=== PATIENT | female | born 2000 | race Caucasian/White ===

== ENCOUNTER 2025-08-30 03:45 | Inpatient (IN) ==
--- NOTE | 2025-08-30 03:55 | Emergency Department Note ---
Impression & Plan Drug overdose Admission ED Provider Note HPI: History obtained from patient. The patient is a 25-year-old female who presents the emergency department after an intentional drug overdose. Patient states that she had an argument with her boyfriend this evening, she states she therefore overdosed on Effexor tablets "because of the stress". Patient denies that this was a suicide attempt. Patient does also admit to drinking heavy amounts of alcohol earlier tonight. Patient states she took somewhere around to half a bottle of Effexor, she states shortly after that she threw up which she estimates was somewhere around 12 tablets. On arrival here to the ED the patient appears to be in no acute distress, she is alert and she is intoxicated but she is overall cooperative. ROS: - Per HPI Differential Diagnosis: Polysubstance abuse, anxiety/depression, suicide attempt, cardiac arrhythmia secondary to drug overdose, amongst other potential pathologies. *Outpatient medications and allergy history reviewed. PE: General: Alert, intoxicated, no acute distress HEENT: Normocephalic, trachea midline Eyes: Extraocular eye movement is intact, no scleral erythema Pulmonary: Clear to auscultation bilaterally, no wheezing Cardio: Regular rate and rhythm GI: Abdomen is soft to palpation : No suprapubic tenderness MSK: No evidence of trauma or malformation of the extremities, no edema Skin: No evidence of rash Neuro: Alert, no focal deficits Psychiatric: Intoxicated but overall cooperative INDEPENDENT INTERPRETATIONS: teletypesetter monitor: (As interpreted by myself): - An order was placed for continuous cardiac monitoring - Patient was noted to be in sinus rhythm with a rate of 90 EKG: (As interpreted by myself): Rate: 91 Rhythm: Normal sinus rhythm Intervals: Within normal limits ST changes: No ST elevation Time: 0349 Interventions provided in ED: - IV fluid bolus Medical Decision Making: IV was established and lab work obtained, patient was placed on rn cardiac rehab. EKG per my interpretation shows normal sinus rhythm without any evidence of arrhythmia or interval prolongation. Lab work shows no leukocytosis, hemoglobin is normal, platelet count is normal, CMP does not show any evidence of any critical findings. testing is negative, urinalysis does not show any blood or infection. Drug screen is positive for cocaine as well as marijuana, alcohol level is elevated at 211. Patient was assessed by case management, she initially is not in agreement for potential voluntary psychiatric admission therefore 302 petition was filed as the patient had an intentional drug overdose this evening. She does admit to the intent of the drug overdose and states she was having an argument with her boyfriend earlier this evening. I did also discussed the patient's presentation with poison control, they recommended 24-hour observation and otherwise supportive care. Given the patient will not be medically cleared for at least 24 hours, I discussed her presentation with the on-call hospitalist, Dr. Ledezma, and the patient was placed for admission in stable condition. Patient was in agreement for admission to the medicine service for further care. Consultants/Discussions held with other healthcare providers: - Hospitalist, Dr. Ledezma - Poison Control Center - Case management, Viktor Dukes Disposition discussion held by myself with: - Patient Diagnosis: 1. Intentional drug overdose, acute 2. Anxiety/depression, acute Disposition: Admission Sky Hernandez DO Emergency Medicine Past Med/Surg History Problem List (Updated 08/30/25 @ 05:14 by Sky Hernandez DO) Drug overdose (Acute) Social History Smoking Status: Current every day smoker Tobacco Type: E-cigarettes / Vaping Preferred Language: Spanish Feels Safe at Home: Yes Results & Data (ED) Vital Signs Vital Signs - 24 hr 08/30/25 04:10 08/30/25 04:13 08/30/25 04:30 Temperature 36.8 C Temperature Source Oral Pulse Rate 82 95 H Pulse Rate [Apical] 89 Pulse Rhythm Regular Pulse Rhythm [Apical] Regular Pulse Strength Normal Pulse Strength [Apical] Normal Respiratory Rate 18 18 Respiratory Effort / Characteristics Non-Labored Spontaneous Non-Labored Spontaneous Respiratory Depth Normal Normal Respiratory Pattern Regular Regular Blood Pressure 160/114 H Blood Pressure [Right Arm] 146/107 H Blood Pressure Mean 129 Blood Pressure Mean [Right Arm] 120 Blood Pressure Position Sitting Blood Pressure Position [Right Arm] Lying Pulse Oximetry 98 100 Oxygen Delivery Method Room Air Room Air Sepsis Recent Fever Within 48 Hours No Sepsis New/Unexplained Change in Mental Status N/A Sepsis Action Taken by Nursing No Action Required 08/30/25 05:01 Temperature Temperature Source Pulse Rate Pulse Rate [Apical] 85 Pulse Rhythm Pulse Rhythm [Apical] Regular Pulse Strength Pulse Strength [Apical] Normal Respiratory Rate 18 Respiratory Effort / Characteristics Non-Labored Spontaneous Respiratory Depth Normal Respiratory Pattern Regular Blood Pressure Blood Pressure [Right Arm] 117/82 Blood Pressure Mean Blood Pressure Mean [Right Arm] 93 Blood Pressure Position Blood Pressure Position [Right Arm] Pulse Oximetry 100 Oxygen Delivery Method Room Air Sepsis Recent Fever Within 48 Hours Sepsis New/Unexplained Change in Mental Status Sepsis Action Taken by Nursing Laboratory Data 08/30/25 03:54 08/30/25 03:54 Lab Results 08/30/25 08/30/25 Range/Units 03:54 04:03 WBC 6.88 (4.8-10.8) K/ul RBC 4.20 (4.20-5.40) M/uL Hgb 12.5 (12.0-16.0) g/dL Hct 37.4 (37.0-47.0) % MCV 89.0 (80.0-100.0) fL MCH 29.8 (25.0-34.0) pg MCHC 33.4 (32.0-36.0) g/dL RDW Std Deviation 40.9 (36.4-46.3) fL RDW Coeff of [place]vy 12.6 (11.5-14.5) % Plt Count 368 (130-400) K/uL MPV 8.8 L (9.4-12.4) fL Immature Gran % (Auto) 0.1 % Neut % (Auto) 61.9 % Lymph % (Auto) 31.7 % [place] % (Auto) 4.2 % Eos % (Auto) 1.7 % Baso % (Auto) 0.4 % Neut # (Auto) 4.25 (1.40-6.50) K/uL Lymph # (Auto) 2.18 (1.20-3.40) K/uL [place] # (Auto) 0.29 (0.11-0.59) K/uL Eos # (Auto) 0.12 (0.00-0.50) K/uL Baso # (Auto) 0.03 (0.00-0.20) K/uL Immature Gran # (Auto) 0.01 (0.01-0.20) K/uL Sodium 140 (136-145) mmol/L Potassium 3.6 (3.5-5.1) mmol/L Chloride 108 H (98-107) mmol/L Carbon Dioxide 25 (21-32) mmol/L Anion Gap 7 (3-11) BUN 9 (6-23) mg/dl Creatinine 0.85 (0.6-1.2) mg/dl Est Cr Clr Drug Dosing 97.8 ml/min eGFR 98.05 BUN/Creatinine Ratio 10.6 (10-20) Glucose 112 H (70-99(Fasting)) mg/dl Calcium 8.9 (8.6-10.3) mg/dl Total Bilirubin 0.2 (0.2-1.0) mg/dl AST 20 (13-39) U/L ALT 19 (7-52) U/L Alkaline Phosphatase 65 (34-104) U/L Total Creatine Kinase 115 (26-192) U/L Total Protein 7.8 (6.0-8.3) gm/dl Albumin 4.4 (3.4-5.0) gm/dl Globulin 3.4 (2.5-4.0) gm/dl Albumin/Globulin Ratio 1.3 (0.9-2) TSH 5.227 H (0.300-4.500) uIu/ml HCG, Qual Negative (Negative) Urine Color Yellow Urine Appearance Clear (Clear) Urine pH 6.0 (4.5-7.5) Ur Specific [place] 1.009 (1.000-1.030) Urine Protein Negative (Negative) Urine Glucose (UA) Negative (Negative) Urine Ketones Negative (Negative) Urine Blood Negative (Negative) Urine Nitrite Negative (Negative) Urine Bilirubin Negative (Negative) Urine Urobilinogen Negative (Negative) Ur Leukocyte Esterase Negative (Negative) Urine Comment Salicylates < 3.0 L (3.0-30) mg/dl Urine Opiates Screen Neg (Neg) Ur Methadone, Qual Neg (Neg) Urine Fentanyl Screen Neg (Neg) Acetaminophen < 3 L (10-30) ug/ml Urine Barbiturates Neg (Neg) Ur Phencyclidine (PCP) Neg (Neg) U Amphetamin/Meth Scrn Neg (Neg) MDMA (Ecstasy) Screen Neg (Neg) U Benzodiazepines Scrn Neg (Neg) Ur Cocaine Metabolite Pos H (Neg) U Marijuana (THC) Screen Pos H (Neg) Ethyl Alcohol mg/dL 211.2 H (<10.0) mg/dl Administered Medications Discontinued Medications Sodium Chloride (Nss) 1,000 mls @ 999 mls/hr IV .Q1H1M FRANCESCA Stop: 08/30/25 05:00 Last Admin: 08/30/25 03:56 Dose: 999 mls/hr Documented By: abl Discharge Plan Visit Data Chief Complaint: Overdose (Intentional) Stated Complaint: OVERDOSE - APPROX 30 150MG EFFEXOR ED Provider: Sky Hernandez Discharge Problem: Drug overdose Patient Disposition: Admitted As Inpatient Condition: Fair Forms Stand Alone Forms: [facility], Suicide Prevention Resources Referrals Referrals: PCP,NO [Primary Care Provider] - Discharge Problem: Drug overdose Qualifiers: Encounter type: initial encounter Injury intent: intentional self-harm Q ualified Code(s): T50.902A - Poisoning by unspecified drugs, medicaments and biological substances, intentional self-harm, initial encounter
[2025-08-30] MEDS: SODIUM CHLORIDE 0.9% 1,000 ML IV SCH ×2 (03:56→06:46)
[2025-08-30 04:15] LABS: Hematocrit (blood only) 37.4 % (37.0-47.0); Hemoglobin 12.5 g/dL (12.0-16.0); Immature Granulocytes # (auto) 0.01 K/uL (0.01-0.20); Immature Granulocytes % (auto) 0.1 %; Mean Corpuscular Hemoglobin 29.8 pg (25.0-34.0); Mean Corpuscular Volume 89.0 fL (80.0-100.0); Platelet Count 368 K/uL (130-400); RDW Standard Deviation 40.9 fL (36.4-46.3); Red Blood Count 4.20 M/uL (4.20-5.40); White Blood Count 6.88 K/ul (4.8-10.8)
[2025-08-30 04:31] LABS: Pregnancy Test, Serum Negative (Negative)
[2025-08-30 04:32] LABS: Alanine Aminotransferase 19.0 U/L (7-52); Albumin Globulin Ratio 1.3 (0.9-2); Albumin Level 4.4 gm/dl (3.4-5.0); Alkaline Phosphatase 65.0 U/L (34-104); Anion Gap 7.0 (3-11); Bilirubin,Total 0.2 mg/dl (0.2-1.0); Blood Urea Nitrogen 9.0 mg/dl (6-23); Calcium 8.9 mg/dl (8.6-10.3); Carbon Dioxide 25.0 mmol/L (21-32); Chloride 108.0 mmol/L (98-107); Creatinine Clr Calc Pharmacy 97.8 ml/min; Globulin 3.4 gm/dl (2.5-4.0); Glucose 112.0 mg/dl (70-99(Fasting)); Potassium 3.6 mmol/L (3.5-5.1); Sodium 140.0 mmol/L (136-145); Total Protein 7.8 gm/dl (6.0-8.3)
[2025-08-30 04:35] LABS: Appearance Urine Clear (Clear); Glucose Urine UA Negative (Negative)
[2025-08-30 04:39] LABS: Acetaminophen < 3 ug/ml (10-30); Salicylate < 3.0 mg/dl (3.0-30)
[2025-08-30 05:00] LABS: Creatine Kinase 115.0 U/L (26-192); Thyroid Stimulating Hormone 5.227 uIu/ml (0.300-4.500)
[2025-08-30 05:00] LABS: Amphetamines+Metham, Urine Neg (Neg); MDMA (Ecstacy), Urine Neg (Neg); Marijuana, Urine Pos (Neg)
[2025-08-30 05:38] LABS: T4 Free Thyroxine 0.85 ng/dl (0.61-1.60)
--- NOTE | 2025-08-30 06:13 | History & Physical Report ---
Date of Service August 30, 2025 Assessment & Plan (1) Drug overdose: Plan: 25-year-old female with past medical history significant for depression and anxiety was brought in because of intentional drug overdose with Effexor. For the ER patient stated that she took half bottle of Effexor and threw up about 12 tablets. Currently states she took about 8 to 10 tablets and mostly threw up. Seems she took the tablets after argument with her boyfriend. Patient states at that time she had thoughts to hurt herself and was stupid. Currently no thoughts to hurt herself. Currently states her mood is better. Patient says she vapes regularly and smokes marijuana regularly. Drinks alcohol once or twice a week on the weekends. Once in a while she does cocaine. She was at a friend's birthday constitution party last night and she did cocaine and marijuana and drank alcohol. Currently resting comfortably and hemodynamically stable. Has some nausea. No abdominal pain. No chest pain or shortness of breath. No headache. No blurred vision. No runny nose or sore throat. Afebrile. No feeling of hot or cold. Normal bowel and bladder movements. Intentional drug overdose With Effexor Seems took about half bottle of tablets and vomited about 12 EKG okay Hemodynamically stable ER spoke with poison control and advised for 24 hours observation Will monitor on telemetry Will follow repeat EKG One-on-one Suicidal precautions Psychiatry consult Depression and anxiety States on Effexor which will be held Psychiatry consulted Alcoholism Alcohol 212 States drinks once or twice a week on weekends Monitor for withdrawal Will give a dose of IV thiamine and folic acid IV Ativan as needed Drug abuse with marijuana and cocaine counselling DVT prophylaxis SCDs Disposition Telemetry Full code. History of Present Illness Chief Complaint: Intentional drug overdose Primary Care Provider: NO PCP 25-year-old female with past medical history significant for depression and anxiety was brought in because of intentional drug overdose with Effexor. For the ER patient stated that she took half bottle of Effexor and threw up about 12 tablets. Currently states she took about 8 to 10 tablets and mostly threw up. Seems she took the tablets after argument with her boyfriend. Patient states at that time she had thoughts to hurt herself and was stupid. Currently no thoughts to hurt herself. Currently states her mood is better. Patient says she vapes regularly and smokes marijuana regularly. Drinks alcohol once or twice a week on the weekends. Once in a while she does cocaine. She was at a friend's birthday constitution party last night and she did cocaine and marijuana and drank alcohol. Currently resting comfortably and hemodynamically stable. Has some nausea. No abdominal pain. No chest pain or shortness of breath. No headache. No blurred vision. No runny nose or sore throat. Afebrile. No feeling of hot or cold. Normal bowel and bladder movements. Past medical history. As mentioned above Past surgical history. None as per patient Social history. Vapes daily. Smokes marijuana regularly. Drinks alcohol once or twice on the weekends. Once in a while she does cocaine. Family history. Father has bipolar disorder and schizophrenia. Past Med/Surg History Problem List (Updated 08/30/25 @ 05:14 by Sky Hernandez DO) Drug overdose (Acute) Social History Smoking Status: Current every day smoker Tobacco Type: E-cigarettes / Vaping Preferred Language: Greek Feels Safe at Home: Yes Review of Systems Review of Systems: All systems reviewed & are unremarkable except as noted in HPI & below Physical Exam Physical Exam: General- Not in distress Head- atraumatic Eyes- PERRL. ENT- oropharynx clear Neck- supple, no JVD. Lungs- clear to auscultation no wheezing or crackles Heart- regular rate and rhythm; no murmur, no gallop. Abdomen- normal bowel sounds, soft, nontender, no distension Extremities- no pretibial edema, no erythema seen Neuro- alert, oriented PERRL, no facial palsy; no dysarthria; moves extrem ities Results & Data Results & Data Vital Signs (Past 12 Hours) Vital Signs Temp Pulse Pulse Resp BP BP Pulse Ox 08/30/25 05:55 94 H 18 119/81 97 08/30/25 05:01 85 18 117/82 100 08/30/25 04:30 89 18 146/107 H 100 08/30/25 04:13 95 H 08/30/25 04:10 36.8 C 82 18 160/114 H 98 O2 Del Method 08/30/25 05:55 Room Air 08/30/25 05:01 Room Air 08/30/25 04:30 Room Air 08/30/25 04:13 08/30/25 04:10 Room Air Diagnostic Findings Laboratory Results - last 24 hr 08/30/25 08/30/25 03:54 04:03 WBC 6.88 RBC 4.20 Hgb 12.5 Hct 37.4 MCV 89.0 MCH 29.8 MCHC 33.4 RDW Std Deviation 40.9 RDW Coeff of [place]vy 12.6 Plt Count 368 MPV 8.8 L Immature Gran % (Auto) 0.1 Neut % (Auto) 61.9 Lymph % (Auto) 31.7 [place] % (Auto) 4.2 Eos % (Auto) 1.7 Baso % (Auto) 0.4 Neut # (Auto) 4.25 Lymph # (Auto) 2.18 [place] # (Auto) 0.29 Eos # (Auto) 0.12 Baso # (Auto) 0.03 Immature Gran # (Auto) 0.01 Sodium 140 Potassium 3.6 Chloride 108 H Carbon Dioxide 25 Anion Gap 7 BUN 9 Creatinine 0.85 Est Cr Clr Drug Dosing 97.8 eGFR 98.05 BUN/Creatinine Ratio 10.6 Glucose 112 H Calcium 8.9 Total Bilirubin 0.2 AST 20 ALT 19 Alkaline Phosphatase 65 Total Creatine Kinase 115 Total Protein 7.8 Albumin 4.4 Globulin 3.4 Albumin/Globulin Ratio 1.3 TSH 5.227 H Free T4 0.85 HCG, Qual Negative Urine Color Yellow Urine Appearance Clear Urine pH 6.0 Ur Specific [place] 1.009 Urine Protein Negative Urine Glucose (UA) Negative Urine Ketones Negative Urine Blood Negative Urine Nitrite Negative Urine Bilirubin Negative Urine Urobilinogen Negative Ur Leukocyte Esterase Negative Urine Comment Salicylates < 3.0 L Urine Opiates Screen Neg Ur Methadone, Qual Neg Urine Fentanyl Screen Neg Acetaminophen < 3 L Urine Barbiturates Neg Ur Phencyclidine (PCP) Neg U Amphetamin/Meth Scrn Neg MDMA (Ecstasy) Screen Neg U Benzodiazepines Scrn Neg U Cocaine Confirm GC/MS Pending Ur Cocaine Metabolite Pos H U Marijuana (THC) Screen Pos H U Marijuana THC Carboxy Pending Drug Screen Comment Pending Ethyl Alcohol mg/dL 211.2 H ECG Additional Comments: ECG. Normal sinus rhythm rate of 91. No acute ST changes seen. Code Status & VTE Plan VTE Prophylaxis Plan VTE Prophylaxis will be ordered: Yes (1) Drug overdose Encounter type: initial encounter Injury intent: intentional self-harm Qualified Code(s): T50.902A - Poisoning by unspecified drugs, medicaments and biological substances, intentional self-harm, initial encounter
[2025-08-30] MEDS: FOLIC ACID 1 MG in SYRINGE 9.8 ML IV STA (06:59)
[2025-08-30] MEDS: THIAMINE HCL 100 MG in SYRINGE 9 ML IV STA (06:59)
[2025-08-30] MEDS: LORazepam Inj 0.5 MG in SYRINGE 0.25 ML IV PRN (07:45)
--- NOTE | 2025-08-30 10:18 | Communication Note ---
Date of Service: August 30, 2025 Patient seen and examined in ED A8. Please see H&P for full details. She is feeling well this AM and denies any complaints. answering questions appropri ately. No slurred speech. Does not appear to be intoxicated at this time. She had one dose of ativan earlier this AM. She states she only drinks alcohol one time per week. No history of withdrawal. Low risk for withdrawal so will DC ativan. EKG reviewed, ID .[id number], QRS 88 and QTc 442. No clinical evidence of serotonin syndrome at this time. Will monitor. d/w psych, they will see today.
[2025-08-30] MEDS: CEROVITE ADV FORMULA TAB PO SCH (10:20)
--- NOTE | 2025-08-30 12:03 | Psychiatric Consultation ---
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 Acute risk of self-harm is low given denial of current suicidal ideation, no longer intoxicated and willing to avoid substance use, took overdose in front of partner and sought help right away, strong desire to live, strong protective factors and deterrents including supportive relationship and scheduled mental health appointments and very future oriented. Chronic risk of suicide is moderate to high given history of previous suicide attempt, impulsivity, history of self-harm in youth, possible cluster B traits, emotional reactivity, family history of by suicide but also with many protective factors including employed, supportive relationships, sense of responsibility to family and social supports, outpatient care in place, positive coping skills, positive problem solving, willingness to engage with treatment and capacity for self-observation. Counseled on ways to reduce acute and chronic risk including engaging with outpatient providers, using safety plan if needed, utilizing supports, starting new medication, and using coping skills. Avoidance of future alcohol use and ongoing therapy are the most significant interventions to address her modifiable risk factors to reduce acute and chronic risk. As of now there is no clear acute/imminent risk of harm to self however, based upon any emergence of suicidal ideation, the chronic risk may then transform into a period of acuity. Provided education and recommendations of treatment options and behavioral strategies which can help to reduce their acute and chronic risk which they were receptive to trying as an outpatient with their current supports. Also discussed resources and ways to add additional protective factors and positive supports to their life to reduce elements of chronic risk. We discussed my strong recommendation for inpatient psychiatric treatment to help determine what medications could be used going forward now that Effexor should be discontinued following the overdose as well as developing increased coping skills and determining if she would benefit from additional outpatient supports or resources. She declines this and does not meet criteria for an involuntary commitment given low acute risk, denial of SI, no evidence for sunil or psychosis, feels safe returning home, reassuring collateral information from her partner, and that events occurred during an episode of acute intoxication. She is willing to contact her outpatient psychiatrist to try to reschedule to an earlier an appointment and continue with therapy and agrees to let us send records to her psychiatrist. Reviewed risks of untreated depression and alcohol use disorder and provided comprehensive crisis resources. Validated her struggles and encouraged engagement with ongoing treatment. She remains committed to outpatient treatment plan and safety measures. Overall, I spent a total of 80 minutes with this case including review of chart records, review of labwork, review of EKG QTc, direct evaluation of the patient at bedside, counseling the patient, discussion of the patient with the Nurse and with the hospitalist provider, discussion with the psychiatric liason during clinical rounds, review of collateral historian information from her partner and documentation in the electronic health record and completion of 302 paperwork for disposition. (1) Suicide attempt: (2) Adjustment disorder with mixed disturbance of emotions and conduct: (3) Depression: (4) Anxiety: (5) Alcohol intoxication: Plan -302 warrant disposition'd, she doesn't meet 302 criteria and can leave AMA -She consented to having my note faxed to her outpatient psychiatrist and she wants to call and will schedule for a sooner outpatient psychiatry appointment -Effexor should be discontinued due to overdose and potential negative psychological association with this; she understands that she may experience withdrawal side effects from stopping this and that her mood could worsen, she feels comfortable managing this as an outpatient and plans to discuss alternative medication options with her outpatient psychiatrist -Reviewed safety planning, crisis information and advised to return to the ED or call 911 should symptoms worsen, not improve or should she feel unsafe in the future which she agrees to do Psych History Identifying Data Getachew House is a 25 yo woman with a past medical history significant for depression and anxiety was brought in because of intentional drug overdose with Effexor while intoxicated with alcohol and cocaine use. Psychiatry consulted for risk assessment and 302 warrant. Chief Complaint "I want to be alive". History of Present Illness Getachew was admitted medically following an overdose of Effexor (approximately 8 to 10 tablets and threw up 4 of these) at a [employer] while intoxicated after an argument with her boyfriend. States that typically she drinks once a week and had consumed approximately 3 vodka beverages at her friend's birthday [employer] yesterday. Her boyfriend, Mikhail, whom she consents to being present for the interview, notes that she has seemed to be drinking a bit more recently and he has noticed that she struggles to stop drinking on the nights that she does drink. Getachew agrees that she has been drinking more recently though she does not view her alcohol use as a problem. Mikhail denies any safety concerns. They have reconciled since the argument last evening. She recalls getting in an argument with Mikhail over "dumb stuff" and then "freaking out" which she describes as crying and that "I could not calm down" and then she very impulsively grabbed her bottle of Effexor (she had this with her because she was planning to stay the night at her friends takes her medication in the morning before work) and took a handful of pills in front of her boyfriend and another friend. Another person at the [employer] then called police while she spit out some of the tablets and manage to throw up about 4 tabs. Today she denies any suicidal ideation and expresses that she wants to be alive and is glad to be alive. Says she "was not thinking" when she took the pills and acknowledges that alcohol made her "more upset and just harder to be rational" with her decision making. She feels if she had not been drinking none of this would have happened and Mikhail agrees with this. She reports she has been experiencing some increased depression and anxiety recently and has been discussing this with her counselor and sees an outpatient psychiatrist. Says her sleep has been a little worse recently approximately 6 hours per night. She denies any hopelessness nor anhedonia nor worthlessness. She notes strong reasons for living including family and friends and future goals including job advancement and buying a house. Psychiatric ROS negative for any current or past symptoms of sunil nor psychosis. Psychiatric history notable for history of depression and anxiety with outpatient therapy weekly and outpatient psychiatric provider through the [facility] in [place]. She had 1 prior suicide attempt at age 18. No history of inpatient psychiatric hospitalizations. History of self-harm in her youth but none since 2009. History of Wellbutrin and Lexapro medication trials in the past. Father with history of bipolar disorder and paternal grandfather who by suicide. No access to guns at home. She is not interested in inpatient psychiatric treatment as she feels it would not be helpful and she would much rather be around her supports and continue to work with her outpatient providers. She is willing to stop drinking and we discussed additional resources and medications that could help should this become a challenge including naltrexone. Patient History Social History Smoking Status: Current every day smoker Tobacco Type: E-cigarettes / Vaping Preferred Language: [place] Citizen Feels Safe at Home: Yes Physical Exam Psychiatric: Orientation: alert and oriented x 3 Apperance: appropriately dressed and appropriately groomed Eye Contact: good eye contact Motor Behavior: no abnormal motor movements Speech: normal rate/rhythm/volume of speech Affect: + tearful affect (when discussing overdose and her regret of this) Mood: + depressed mood and + anxious mood Thought Process: linear/logical thought process Thought Content: reality based without delusions Suicidal Thoughts: denies suicidal thoughts Homicidal Thoughts: denies homicidal thoughts Hallucinations: no auditory hallucinations and no visual hallucinations Cognition: recent memory grossly intact, remote memory grossly intact, attention grossly intact and language grossly intact Estimated Intelligence: consistent with education level Insight: + fair in sight Judgment: + fair judgement Vital Signs (Past 24 Hours): Last Vital Signs Temp 36.8 C 08/30/25 04:10 Pulse 88 08/30/25 07:01 Resp 17 08/30/25 06:54 BP 126/95 08/30/25 06:54 Pulse Ox 97 08/30/25 06:54 O2 Del Method Room Air 08/30/25 06:54 Results & Data (PSY) Medications Administered Sodium Chloride (Nss) 1,000 mls @ 125 mls/hr IV .Q8H FRANCESCA Stop: 08/30/25 14:08 Last Admin: 08/30/25 06:46 Dose: 125 mls/hr Documented By: jeffery Multivitamins/Minerals (Cerovite Adv Formula Tab) 1 tab PO QAM FRANCESCA Stop: 09/29/25 08:59 Last Admin: 08/30/25 10:20 Dose: 1 tab Documented By: LUANNE Coding Level of Care Code 78344 IN/OBS CONSULT LVL 5,80M Diagnoses Suicide attempt T14.91XA Adjustment disorder with mixed disturbance of emotions and conduct F43.25 Depression F32.A Anxiety F41.9 Alcohol intoxication F10.929
--- NOTE | 2025-08-30 14:46 | Electrocardiogram Report ---
Test Reason : Blood Pressure : */* mmHG Vent. Rate : 91 BPM Atrial Rate : 91 BPM P-R Int : 198 ms QRS Dur : 88 ms QT Int : 360 ms P-R-T Axes : 77 89 66 degrees QTcB Int : 442 ms Normal sinus rhythm Normal ECG No previous ECGs available Confirmed by Peng Thao ([id number]) on 08/30/2025 2:46:32 PM Referred By: REFERRED SELF Confirmed By: Peng Thao
--- NOTE | 2025-08-30 16:55 | Discharge Summary ---
Discharge Summary Date of Service August 30, 2025 Principal Dx & Hospital Course #1 = Principal Diagnosis (1) Alcohol intoxication: Ms rogers is a 25F with H depression, anxiety, drug use who presented with an overdose of effexor after getting into a fight with her boyfriend. She then impulsively took a handful of her effexor tablets. She proceeded to throw up some of the tablets she took. A person at the [employer] called the police and she was brought into the ED. In the ED, she was initially intoxicated with BAL 211. Labs otherwise benign. Utox positive for cocaine and THC. Poison control was notified and recommended 24 hour monitoring. Patient seen this morning. she was sober at time of interview. she stated she felt well and denied any complaints. She was then evaluated by psychiatry. D/w psychiatry, no indication for 302 as this impulsive act occurred when she was intoxicated. Per psych, she is allowed to leave AMA. She was encouraged to stay overnight for continued monitoring but still refused to leave. Patient was informed of the risks and signed AMA paperwork. vitals were stable when she left AMA (2) Anxiety: (3) Depression: Notes For Next Care Provider Medication Changes From Visit Patient was instructed to stop her effexor Admission HPI Per Admitting Provider 25-year-old female with past medical history significant for depression and anxiety was brought in because of intentional drug overdose with Effexor. For the ER patient stated that she took half bottle of Effexor and threw up about 12 tablets. Currently states she took about 8 to 10 tablets and mostly threw up. Seems she took the tablets after argument with her boyfriend. Patient states at that time she had thoughts to hurt herself and was stupid. Currently no thoughts to hurt herself. Currently states her mood is better. Patient says she vapes regularly and smokes marijuana regularly. Drinks alcohol once or twice a week on the weekends. Once in a while she does cocaine. She was at a friend's birthday [employer] last night and she did cocaine and marijuana and drank alcohol. Currently resting comfortably and hemodynamically stable. Has some nausea. No abdominal pain. No chest pain or shortness of breath. No headache. No blurred vision. No runny nose or sore throat. Afebrile. No feeling of hot or cold. Normal bowel and bladder movements. Past medical history. As mentioned above Past surgical history. None as per patient Social history. Vapes daily. Smokes marijuana regularly. Drinks alcohol once or twice on the weekends. Once in a while she does cocaine. Family history. Father has bipolar disorder and schizophrenia. Hospital Stay Data Consultations 08/30/25 05:11 ED Decision to Admit Stat 08/30/25 08:00 Consult Psychiatry Routine Total Time Total Time Spent Total Time Spent (In Minutes): 45
== END 2025-08-30 16:45 | disposition left against medical advice (07) | DRG 918 ==
LOC: ED 03:45 → EDINP 06:00